=== PATIENT | male | born 1965 | race American Indian/Alaskan Native ===

== ENCOUNTER 2017-01-13 13:51 | Emergency (ER) | payer OTHER, BC ==
[2017-01-13 14:00] VITALS: BP 158/100
[2017-01-13] MEDS ORDERED: DELTASONE PO ONE (17:03)
[2017-01-13] MEDS ORDERED: TORADOL IM ONE (17:03)
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
[2017-01-13] MEDS ORDERED: CATAPRES PO ONE (18:02)
== END 2017-01-13 18:36 | disposition home or self-care (01) ==
LOC: ED 13:51
DX: M54.5 Low back pain (principal); I10 Essential (primary) hypertension; J45.909 Unspecified asthma, uncomplicated; F17.200 Nicotine dependence, unspecified, uncomplicated; V89.2XXA Person injured in unspecified motor-vehicle accident, traffic, initial encounter; Y93.89 Activity, other specified; Y92.89 Other specified places as the place of occurrence of the external cause; Y99.8 Other external cause status
CPT/HCPCS: 96372; 99282; J1885; J7512